=== PATIENT | male | born 1970 | race Caucasian/White ===

== ENCOUNTER 2025-01-09 04:47 | Inpatient (IN) | payer MEDICARE, OTHER ==
[~2025-01-09] VITALS: Ht 182.9 cm; Wt 94.7 kg
[~2025-01-09 04:47] MED LIST: ALBU90OI INH; ALLO100 PO; ALPR1 PO; AMIT10 PO; AMLO10 PO; ASPI325 PO; ASPI81CH PO; ASPI81EC PO; ATEN50 PO; ATOR40TA PO; AUGMENTIN; BENAML20/5; BUPR150ER PO; CARI350 PO; CHOL10002 PO; CLON.1 PO; CLON.2 PO; CLONIDINE; DIVA500EC PO; HYDACE10B; HYDACE10B PO; HYDCHL25 PO; IBUP800 PO; LISI20 PO; LISI5 PO; LISINOPRIL; LISINOPRIL PO; LORA2; LORA2 PO; METFORMIN; Norvasc5 MG PO; OLAN10 PO; OLME20 PO; OXYACE5T PO; Percocet 5-3251 EACH PO; TEMA30; TERB250 PO; ZOLP10 PO
[2025-01-09] MEDS ORDERED: Ipratropium/Albuterol SulF 2.5-0.5MG/3 ML Amp INH PRN ×2 (05:10→16:15)
[2025-01-09 05:12] LABS: BASOPHILS ABSOLUTE AUTO 0.08 K/mm3 (0.00-0.23); BASOPHILS PERCENT AUTO 1 % (0-2); EOSINOPHILS ABSOLUTE AUTO 0.12 K/mm3 (0.00-0.68); EOSINOPHILS PERCENT AUTO 1 % (0-6); Hematocrit 45.4 % (37.0-53.0); Hemoglobin 14.9 g/dL (13.5-17.5); IMMATURE GRAN ABSOLUTE AUTO 0.07 K/mm3 (0.00-0.10); IMMATURE GRAN PERCENT AUTO 1 % (0-1); LYMPHOCYTES ABSOLUTE AUTO 1.66 K/mm3 (0.84-5.20); LYMPHOCYTES PERCENT AUTO 13 % (21-46); MONOCYTES ABSOLUTE AUTO 1.11 K/mm3 (0.16-1.47); MONOCYTES PERCENT AUTO 9 % (4-13); Mean Corpuscular HGB 29.4 pg (26.0-34.0); Mean Corpuscular HGB Conc 32.8 g/dL (31.5-36.5); Mean Corpuscular Volume 90 fL (80-100); Mean Platelet Volume 10.5 fL (9.1-12.4); NEUTROPHILS ABSOLUTE AUTO 10.08 K/mm3 (1.96-9.15); NEUTROPHILS PERCENT AUTO 77 % (41-73); Platelet Count 243 K/mm3 (150-400); RDW Coefficient Variation 13.6 % (11.7-14.2); RDW Standard Deviation 44.8 fL (35.1-46.3); Red Blood Cell Count 5.06 M/mm3 (4.30-5.90); White Blood Cell Count 13.12 K/mm3 (4.00-11.30)
[2025-01-09] MEDS ORDERED: HYDRA25 PO (05:14)
[2025-01-09 05:29] LABS: Albumin/Globulin Ratio 1.2 (0.8-1.8); Bilirubin, Total 1.2 mg/dL (0.1-1.0); Bun/Creatinine Ratio 12.4 (12.0-20.0); Creatinine, Blood 1.45 mg/dL (0.60-1.20); Globulin, Blood 3.3 g/dL (2.2-4.0); Potassium, Blood 4.1 mmol/L (3.5-5.5); Total Protein, Blood 7.3 g/dL (6.4-8.2)
[2025-01-09] MEDS ORDERED: Furosemide 10 MG/ML 4ML Vial IV ONE (07:45)
[2025-01-09] MEDS ORDERED: Ondansetron 4 MG TAB PO PRN (08:10)
[2025-01-09] MEDS ORDERED: Aspirin 81 MG Chew PO SCH ×2 (09:00)
[2025-01-09] MEDS ORDERED: Nitroglycerin 0.4 MG SUBL SL ONE (09:00)
[2025-01-09] MEDS ORDERED: Docusate Sodium 100 MG Cap PO SCH (09:00)
[2025-01-09] MEDS ORDERED: Famotidine 20 MG Tab PO SCH (09:00)
[2025-01-09] MEDS ORDERED: Atorvastatin 40 MG Tab PO SCH (09:00)
[2025-01-09] MEDS ORDERED: Lisinopril 20 MG Tab PO SCH (09:00)
[2025-01-09] MEDS ORDERED: CloNIDine HCl 0.2 MG Tab PO SCH (09:00)
[2025-01-09] MEDS ORDERED: AmLODIPine Besylate 5 MG Tab PO SCH (09:00)
[2025-01-09] MEDS ORDERED: HydrALAZINE HCl 25 MG Tab PO SCH ×2 (09:00→21:00)
[2025-01-09] MEDS ORDERED: Atenolol 50 MG Tab PO SCH (09:00)
[2025-01-09] MEDS ORDERED: Sennosides 8.6 MG Tab PO SCH (09:00)
[2025-01-09] MEDS ORDERED: Losartan Potassium 50 MG Tab PO SCH ×2 (09:30→21:00)
[2025-01-09 10:11] VITALS: BP 172/73
[2025-01-09 11:40] VITALS: BP 129/71
[2025-01-09] MEDS ORDERED: Empagliflozin 10 MG TAB PO SCH (13:00)
[2025-01-09 14:52] VITALS: BP 115/56
[2025-01-09] MEDS ORDERED: Furosemide 10 MG/ML 4ML Vial IV SCH (18:00)
--- NOTE | 2025-01-09 18:27 | NUR ---
PT ADMITTED TO UNIT THIS MORNING FOR SOB FOR THE PAST WEEK AND BLE EDEMA. PT ON 2L O2 VIA NC, BLOOD PRESSURE DOWN TO NORMAL RANGE THIS AFTERNOON. LASIX GIVEN WITH GOOD URINE OUTPUT IN URINAL. PT A&OX4, NORMALLY INDEPENDENT WITH A CANE D/T HX OF CVA. PT EDUCATED ON 1500 FR AND PLAN OF CARE. CALLS APPROPRIATELY, COOPERATIVE WITH CARE. ECHO DONE TODAY, AWAITING RESULTS.
[2025-01-09 19:21] VITALS: BP 113/63
[2025-01-09] MEDS ORDERED: Atorvastatin 10 MG Tab PO SCH (21:00)
[2025-01-09] MEDS ORDERED: CloNIDine 0.1 MG Tab PO SCH ×2 (21:00)
[2025-01-09] MEDS ORDERED: LORazepam 2 MG/ML 1ML Injection IV ONE (23:00)
[2025-01-10 00:25] VITALS: BP 135/74
[2025-01-10 04:06] VITALS: BP 120/53
--- NOTE | 2025-01-10 04:22 | NUR ---
ENVIRONMENTAL HEALTH SAFETY MANAGER SUMMARY W/HOSPITALIST CONTACT PT IS A/OX4. PLEASANT AND COOPERATIVE. PT ON 2.5LPM OF OXYGEN. ABLE TO MAKE NEEDS KNOWN. ORIENTED TO ROOM AND CALL LIGHT IN PLACE. PT FRIENDLY. PT ON TELE WITH NO EVENTS. NSR. PT STATES HE HASN'T SLEPT IN THE LAST FEW DAYS DUE TO DIFFICULTY BREATHING. PT FEELING ANXIOUS AND RESTLESS. CALL TO HOSPITALIST. SPOKE TO DR MONET. NEW ORDER FOR 0.5MG ATIVAN IV, ONE TIME. PT INITALLY STATES HE DOES NOT TAKE ANYTHING AT HOME FOR SLEEP OR ANXIETY. PT STATES HE USED TO TAKE ORAL ATIVAN AND SEROQUEL. AFTER ADMINISTERING THE ATIVAN PT REPORTED HE DIDN'T NOTICE AN IMPROVEMENT. PT WAS ABLE TO SLEEP FOR A FEW HOURS AFTER MEDICATION. PT IS ORIENTED TO ROOM. CALL LIGHT ACCESSIBLE. ABLE TO MAKE NEEDS KNOWN. CARE WILL CONTINUE UNTIL REPORT GIVEN TO ONCOMING NURSE.
[2025-01-10 06:30] LABS: BASOPHILS ABSOLUTE AUTO 0.05 K/mm3 (0.00-0.23); BASOPHILS PERCENT AUTO 1 % (0-2); EOSINOPHILS ABSOLUTE AUTO 0.25 K/mm3 (0.00-0.68); EOSINOPHILS PERCENT AUTO 2 % (0-6); Hematocrit 37.2 % (37.0-53.0); Hemoglobin 11.8 g/dL (13.5-17.5); IMMATURE GRAN ABSOLUTE AUTO 0.06 K/mm3 (0.00-0.10); IMMATURE GRAN PERCENT AUTO 1 % (0-1); LYMPHOCYTES ABSOLUTE AUTO 2.04 K/mm3 (0.84-5.20); LYMPHOCYTES PERCENT AUTO 19 % (21-46); MONOCYTES PERCENT AUTO 10 % (4-13); Mean Corpuscular HGB 28.9 pg (26.0-34.0); Mean Corpuscular HGB Conc 31.7 g/dL (31.5-36.5); Mean Corpuscular Volume 91 fL (80-100); NEUTROPHILS PERCENT AUTO 68 % (41-73); Platelet Count 197 K/mm3 (150-400); RDW Coefficient Variation 13.7 % (11.7-14.2); RDW Standard Deviation 45.7 fL (35.1-46.3); Red Blood Cell Count 4.09 M/mm3 (4.30-5.90)
[2025-01-10 06:58] LABS: Albumin, Blood 3.1 g/dL (3.4-5.0); Albumin/Globulin Ratio 1.2 (0.8-1.8); Bilirubin, Total 1.2 mg/dL (0.1-1.0); Calcium, Blood 8.7 mg/dL (8.5-10.1); Creatinine, Blood 1.84 mg/dL (0.60-1.20); Globulin, Blood 2.5 g/dL (2.2-4.0); Potassium, Blood 3.9 mmol/L (3.5-5.5); Total Protein, Blood 5.6 g/dL (6.4-8.2)
[2025-01-10 08:02] VITALS: BP 137/51
[2025-01-10] MEDS ORDERED: Enoxaparin 40 MG/0.4 ML SYR SC SCH (09:00)
[2025-01-10] MEDS ORDERED: Metoprolol Succinate 50 MG TABCR PO SCH ×2 (09:00)
[2025-01-10] MEDS ORDERED: CloNIDine 0.1 MG Tab PO PRN (09:50)
[2025-01-10 12:09] VITALS: BP 137/84
--- NOTE | 2025-01-10 12:13 | NUR ---
PCR SENT, ALERT AND ORIENTED X4, CLEARLY MAKES NEEDS KNOWN, PLEASANT AND COOPERATIVE TO CARE, INDEPEDANT TO BATHROOM
[2025-01-10 13:29] LABS: Adenovirus Not Detected (NOT DETECT); Bordetella pertussis Not Detected (NOT DETECT); Chlamydophila pneumoniae Not Detected (NOT DETECT); Coronavirus 229E Not Detected (NOT DETECT); Coronavirus HKU1 Not Detected (NOT DETECT); Coronavirus NL63 Not Detected (NOT DETECT); Coronavirus OC43 Not Detected (NOT DETECT); Human Metapneumovirus Not Detected (NOT DETECT); Human Rhinovirus/Enterovirus Not Detected (NOT DETECT); Influenza A/2009-H1 Not Detected (NOT DETECT); Influenza A/H1 Not Detected (NOT DETECT); Influenza A/H3 Not Detected (NOT DETECT); Influenza B Not Detected (NOT DETECT); Mycoplasma pneumoniae Not Detected (NOT DETECT); Parainfluenza Virus 1 Not Detected (NOT DETECT); Parainfluenza Virus 2 Not Detected (NOT DETECT); Parainfluenza Virus 3 Not Detected (NOT DETECT); Parainfluenza Virus 4 Not Detected (NOT DETECT); Respiratory Syncytial Virus Not Detected (NOT DETECT); SARS-Cov-2 (COVID-19), BioFire Not Detected (NOT DETECT)
[2025-01-10 15:28] VITALS: BP 151/77
[2025-01-10] MEDS ORDERED: CloNIDine HCL 0.3 MG Patch TOP SCH (18:00)
--- NOTE | 2025-01-10 18:34 | NUR ---
ALERT AND ORIENTED X4, PLEASANT AND COOPERATIVE, PRN NIGHT SEROQUEL STARTED, NEW CLONICINE PATCH TO RIGHT UPPER ARM. SATS 95% ON RA, PATIENT DEOS STILL HAVE SOB WITH ANXIETY, ENCOURAGED DEEP BREATHING AND SOB RESOLVED. CALL LIGHT WITH IN REACH, WILL RELAY TO PM RN
[2025-01-10 19:38] VITALS: BP 157/70
[2025-01-10] MEDS ORDERED: QUEtiapine Fumarate 50 MG TAB PO SCH (21:00)
[2025-01-11 00:43] VITALS: BP 151/51
[2025-01-11 03:52] VITALS: BP 169/64
[2025-01-11 05:46] LABS: BASOPHILS ABSOLUTE AUTO 0.07 K/mm3 (0.00-0.23); BASOPHILS PERCENT AUTO 1 % (0-2); EOSINOPHILS ABSOLUTE AUTO 0.23 K/mm3 (0.00-0.68); EOSINOPHILS PERCENT AUTO 2 % (0-6); Hematocrit 40.9 % (37.0-53.0); Hemoglobin 13.8 g/dL (13.5-17.5); IMMATURE GRAN ABSOLUTE AUTO 0.05 K/mm3 (0.00-0.10); IMMATURE GRAN PERCENT AUTO 0 % (0-1); LYMPHOCYTES ABSOLUTE AUTO 2.45 K/mm3 (0.84-5.20); LYMPHOCYTES PERCENT AUTO 21 % (21-46); MONOCYTES ABSOLUTE AUTO 1.13 K/mm3 (0.16-1.47); MONOCYTES PERCENT AUTO 10 % (4-13); Mean Corpuscular HGB 29.7 pg (26.0-34.0); Mean Corpuscular HGB Conc 33.7 g/dL (31.5-36.5); Mean Corpuscular Volume 88 fL (80-100); Mean Platelet Volume 10.8 fL (9.1-12.4); NEUTROPHILS ABSOLUTE AUTO 7.52 K/mm3 (1.96-9.15); NEUTROPHILS PERCENT AUTO 66 % (41-73); Platelet Count 237 K/mm3 (150-400); RDW Coefficient Variation 13.8 % (11.7-14.2); RDW Standard Deviation 44.1 fL (35.1-46.3); Red Blood Cell Count 4.65 M/mm3 (4.30-5.90); White Blood Cell Count 11.45 K/mm3 (4.00-11.30)
[2025-01-11 06:07] LABS: Bun/Creatinine Ratio 14.5 (12.0-20.0); Calcium, Blood 9.2 mg/dL (8.5-10.1); Creatinine, Blood 1.73 mg/dL (0.60-1.20); Potassium, Blood 3.8 mmol/L (3.5-5.5)
--- NOTE | 2025-01-11 06:14 | NUR ---
SHIFT SUMMARY PT UP ON SIDE OF BED AT START OF SHIFT. AFTER ANOTHER PT ATTEMPTED TO ENTER HIS ROOM, HE AND THE OTHER PT WERE ASKED TO STAY IN THEIR OWN ROOMS THIS IS A SAFETY ISSUE AND DISTURBS THE OTHER PT S IN THE UNIT. THEY WERE NOT WILLING TO BE COMPLIANT AFTER BEING ASKED BY THIS RN, ANOTHER RN, AND HOSE STRIPPER. RN COMPLEX CARE INFORMED PT THAT IF THEY DID NOT FOLLOW HOSPITAL POLICIES, SECURITY WOULD BE CALLED. PT BECAME UPSET WITH RN COMPLEX CARE. STATED WHAT IS SECURITY GONNA DO? THEY CAN T DO ANYTHING. IF I WANT TO LEAVE I CAN AND THERE S NOTHING THEY CAN DO ABOUT IT. RN COMPLEX CARE INFORMED PT HE COULD LEAVE IF HE WANTED, OF COURSE, BUT WOULD BE LEAVING AMA. COMPROMISE IN PLACE TO HAVE PT S CALL EACH OTHER ON THEIR ROOM PHONES. THIS WAS SATISFACTORY FOR BOTH PT S. AFTER RECEIVING NIGHT TIME MEDICATION, PT WENT TO SLEEP. APPROX 0000, PT GOT UP AND OUT OF BED, CAME OUT INTO THE HALLWAY, AND VOIDED ON THE FLOOR, THEN WENT BACK TO BED. ENVIRONMENTAL SERVICES TO CLEAN UP MESS. PT IN BED RESTING PEACEFULLY.
[2025-01-11 07:35] VITALS: BP 142/56
[2025-01-11] MEDS ORDERED: Enoxaparin 30 MG/0.3 ML SYR SC SCH (09:00)
[2025-01-11] MEDS ORDERED: Losartan Potassium 50 MG Tab PO SCH (09:00)
[2025-01-11] MEDS ORDERED: ASPI81CH PO (12:47)
[2025-01-11] MEDS ORDERED: CATAPRES-TTS 31 EAC2 TOP (12:52)
[2025-01-11] MEDS ORDERED: Seroquel Xr50 MG PO (12:53)
[2025-01-11] MEDS ORDERED: FURO20 PO (12:53)
[2025-01-11] MEDS ORDERED: JARDIANCE10 MG PO (12:56)
[2025-01-11] MEDS ORDERED: METO50ER PO (12:57)
[2025-01-11] MEDS ORDERED: LOSA50 PO (12:58)
--- NOTE | 2025-01-11 14:47 | NUR ---
PATIENT DISCHARGED HOME, DISCHARGE INSTRUCTIONS GIVEN TO PATIENT, PATIENT STATED UNDERSTANDING OF INSTRUCTIONS, MEDICATIONS, AND FOLLOW UP. PLEASANT TO CARE
== END 2025-01-11 13:23 | disposition home or self-care (01) | DRG 280 ==
LOC: ER 04:47 → MEDS 08:09
PROVIDERS: Student in an Organized Health Care Education/Training Program; ADMIT Internal Medicine
DX: I13.0 Hypertensive heart and chronic kidney disease with heart failure and stage 1 through stage 4 chronic kidney disease, or unspecified chronic kidney disease (principal); I50.33 Acute on chronic diastolic (congestive) heart failure; I21.A1 Myocardial infarction type 2; J96.01 Acute respiratory failure with hypoxia; I16.1 Hypertensive emergency; N18.31 Chronic kidney disease, stage 3a; E11.22 Type 2 diabetes mellitus with diabetic chronic kidney disease; G47.33 Obstructive sleep apnea (adult) (pediatric); G43.909 Migraine, unspecified, not intractable, without status migrainosus; G47.00 Insomnia, unspecified; I25.2 Old myocardial infarction; Z86.74 Personal history of sudden cardiac arrest; Z86.73 Personal history of transient ischemic attack (TIA), and cerebral infarction without residual deficits; Z87.891 Personal history of nicotine dependence; Z88.8 Allergy status to other drugs, medicaments and biological substances; Z79.82 Long term (current) use of aspirin; Z79.899 Other long term (current) drug therapy
CPT/HCPCS: 0202U; 36415; 71046; 80048; 80053; 82947; 83036; 83880; 84443; 84484; 85025; 93005; 93010; 93306; 94640; 94664; 94760; 96374; 99285-25; A9270; J1650; J1940; J2060